=== PATIENT | female | born 1950 | race Caucasian/White ===

== ENCOUNTER → 2019-12-25 07:47 | Outpatient (CLI) | payer OTHER, SELFPAY ==
--- NOTE | ~2019-12-25 | MR_ITS ---
EXAMINATION: MR knee LT wo con DATE: 12/25/2019 08:31 INDICATION: Generalized left knee pain and difficulty walking TECHNIQUE: Magnetic resonance imaging (MRI) of the left knee was performed without intravenous contra st. Sequences included coronal PD-weighted FSE, coronal PD-weighted FS FSE, sagittal T2-weighted FSE , sagittal PD-weighted FS FSE and axial PD weighted fat saturated FSE. COMPARISON: Left knee radiographs dated 04/10/2019 FINDINGS: Medial compartment: Interval development of a large osteochondral lesion underlying nearly the entire articular surface o f the anterior weightbearing medial femoral condyle. There is linear fluid signal intensity along the margins of the lesion including extending across the articular cortices consistent with a loose in s itu fragment. There has been mild collapse of the articular surface with up to 1 mm step-off along th e medial margin of the lesion. There is mild underlying marrow edema. Complex tear along the body and posterior horn of the medial meniscus which includes a radial tear plane at the posterior horn and a dditional small radial tear plane at the body where there is also a small longitudinal vertical tear plane extending to the inferior articular surface and the peripheral third. The posterior horn on eit her side the radial tear appears small suggesting some loss of meniscal tissue although no displaced meniscal flap is appreciated. Deep chondral ulceration but without degenerative subchondral changes a long the posterior weightbearing medial femoral condyle. Additional deep chondral ulceration at the a nterior medial aspect of the medial tibial plateau with minimal underlying subarticular edema. There is some partial thickness fissuring of the cartilage at the central aspect of the osteochondral lesio n. Small marginal osteophytes are present. Lateral compartment: Lateral meniscus is normal. Articular cartilage is normal. Tiny marginal osteophytes are present. Patellofemoral compartment: Deep chondral ulceration with mild underlying subarticular cystic change at the patellar apical ridge and medial patellar facet. Partial-thickness chondral ulceration with chondral surface irregularity and minimal subarticular edema at the medial trochlea and caudal aspect of the trochlear groove. Smal l marginal osteophytes are present. Ligaments and tendons: Anterior and posterior cruciate ligaments are normal. The medial collateral ligament and fibular dia ateral ligament complex are normal. The extensor mechanism is normal. The visualized medial and later al hamstring tendons as well as the iliotibial band are normal. Fluid: Large knee joint effusion with moderate synovitis at the suprapatellar pouch and along the margins of Hoffa's fat pad. No loose osteochondral bodies identified. IMPRESSION: 1. Large loose in situ osteochondral lesion involving nearly the entire articular surface of the ante rior weightbearing medial femoral condyle with minimal collapse of the articular cortex. 2. Complex medial meniscal tear. 3. Tricompartmental osteoarthritis, mild in the medial and mild to moderate in the patellofemoral com partments, both with high-grade chondromalacia and minimal with relatively preserved cartilage in the lateral compartment. 4. Likely reactive large left knee joint effusion and synovitis. Reviewed, dictated and finalized at location A. IMPRESSION: 1. Large loose in situ osteochondral lesion involving nearly the entire articul ar surface of the anterior weightbearing medial femoral condyle with minimal co llapse of the articular cortex. 2. Complex medial meniscal tear. 3. Tricompartmental osteoarthritis, mild in the medial and mild to moderate in the patellofemoral compartments, both with hi
== END ==
PROVIDERS: PCP Internal Medicine; Visit Provider Internal Medicine
DX: M25.562 Pain in left knee (principal); M89.9 Disorder of bone, unspecified; S83.232A Complex tear of medial meniscus, current injury, left knee, initial encounter; M17.12 Unilateral primary osteoarthritis, left knee; M25.462 Effusion, left knee; M65.862 Other synovitis and tenosynovitis, left lower leg
CPT/HCPCS: 73721

== ENCOUNTER 2020-06-03 01:11 | Outpatient (CLI) | payer OTHER, SELFPAY ==
[2020-06-03 18:21] LABS: SARS-CoV-2 RNA PCR Negative
== END 2020-06-03 01:12 | disposition home or self-care (01) ==
LOC: ANHCOVIDDT 01:11
PROVIDERS: PCP Internal Medicine; Visit Provider Internal Medicine Critical Care Medicine
DX: Z20.828 Contact with and (suspected) exposure to other viral communicable diseases (principal)
CPT/HCPCS: 87635; C9803; U0003

== ENCOUNTER 2020-06-05 08:25 | Outpatient (CLI) | payer OTHER, SELFPAY ==
--- NOTE | 2020-07-15 19:13 | WPDSLEEPSTUD ---
Sleep Study Date of Study: 06/05/20 Ordering Provider: Poncho Grider DO Interpreting Physician: Anahy Martin MD Sleep Study Type: Split Polysomnogram Height: 1.55 m Weight: 84.368 kg Body Mass Index: 35.1 Neck Circumference: 41.91 cm [place]: 5 Reason for Sleep Study Obstructive sleep apnea Sleep History Seda Ellis is a 69 year-old female with a history of sleep apnea with a nocturnal polysomnogram on April 14, 2005 with an AHI of 11.7 associated with heavy snoring and oxygen desaturation. She has difficulty getting to sleep and staying asleep. She was diagnosed with sleep apnea years ago and has used CPAP but from the survey is implied that she has not been using it recently. She constantly snores. Occasionally she awakens at night with heartburn, belching or coughing. She does not awaken from sleep feeling short of breath. She frequently has trouble sleep with a cold. She does not wake up gasping for breath at night. She frequently has breathing problems at night observed by others. She does not sweat excessively at night or notices her heart pounding or beating irregularly at night. She rarely falls asleep during the day, never involuntarily and never while driving. She does not fall asleep during physical effort. She does not have loss of muscle tone with strong emotion. she rarely has daytime difficulties due to excessive sleepiness, works as an insurance case manager. she does not feel paralyzed on waking or falling asleep. She occasionally has vivid dreamlike scenes upon awakening or falling asleep. She is not afraid to go to sleep. She denies having nightmares. She rarely remembers her dreams. She frequently has racing thoughts. She rarely has feelings of sadness, depression or anxiety. She does not have muscular tension. She rarely notices parts of her body jerking. She does not kick at night. She does not have crawling and aching feelings in her legs at night. She does not have morning jaw pain. She occasionally wakes up feeling stiff in the morning with sore achy muscles and pain in the neck and spine. She has insomnia. Normal bedtime is 10:00 p.m., taking several hours to fall asleep. When she wakes up in the night, she watches television. She wakes in the morning between 5:30 a.m. and 7:30 a.m. On the weekends, she wakes at 7:00 a.m. She does not take naps. She is drowsy in the morning for an hour, and feels better in the morning compared to other times of day. Habits: She never smoked tobacco. Caffeine 2 cups in the morning. No alcohol or recreational drugs. 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 DM w/o complication type II Dysphagia, unspecified Hepatitis C antibody test positive Obstructive sleep apnea Other and unspecified hyperlipidemia Family History Family History Mother Family history of seizure disorder Social History Social History Smoking status: Never smoker Alcohol intake: current Medications Home Medications Medication Instructions Recorded Confirmed Type aspirin 81 mg tablet,delayed 81 mg PO DAILY 06/05/19 04/14/20 History release tramadol 50 mg tablet 50 mg PO Q6H PRN #90 tablet 08/30/19 04/14/20 Rx glimepiride 2 mg tablet 2 mg PO QAM #90 tablet 03/20/20 04/14/20 Rx linagliptin 5 mg tablet See Rx Instructions .ROUTE 04/01/20 04/14/20 Rx .COMPLEX #90 tablet hydrocodone 5 mg-acetaminophen 325 1 tablet PO Q6H PRN 04/14/20 History mg tablet meloxicam 15 mg tablet 15 mg PO DAILY PRN 04/14/20 History atorvastatin 40 mg tablet See Rx Instructions .ROUTE 05/04/20 Rx .COMPLEX #90 tablet canagliflozin 300 mg tablet See Rx Instructions .ROUTE 05/04/20 Rx .COMPLEX #90 tablet
[2020-07-15 20:50] VITALS: BMI 35.1
== END 2020-06-05 08:26 | disposition home or self-care (01) ==
LOC: ANHCSM 08:26
PROVIDERS: PCP Internal Medicine; Visit Provider Internal Medicine
DX: G47.33 Obstructive sleep apnea (adult) (pediatric) (principal)
CPT/HCPCS: 95811

== ENCOUNTER 2020-12-31 14:48 | Outpatient (CLI) | payer OTHER, SELFPAY ==
--- NOTE | ~2020-12-31 | DEXA_ITS ---
Bone Density Report Name: Seda Ellis Age: 70 Sex: Female Ethnicity: White Date of : 1950 Indication: postmenopausal; Referring Provider: Halie Richards Study: Bone densitometry was performed. Exam Date: December 31, 2020 Accession number: [id number] Bone Density: Region BMD T-score Z-score Classification AP Spine (L1, L4) 1.204 1.5 3.7 Normal Femoral Neck (Left) 0.774 -0.7 1.2 Normal Total Hip (Left) 1.017 0.6 2.2 Normal Total Hip Bilateral Avg 0.993 0.4 2.0 Normal Femoral Neck (Right) 0.716 -1.2 0.7 Osteopenia Total Hip (Right) 0.967 0.2 1.8 Normal World Health Organization criteria for BMD impression classify patients as: Normal (T-score at or above -1.0), Osteopenia (T-score between -1.0 and -2.5), or Osteoporosis (T-score at or below -2.5). 10-year Fracture Risk(1): Major Osteoporotic Fracture 9.1% Hip Fracture 1.2% Reported Risk Factors: [place] (), Neck BMD=0.716, BMI=34.0 (1) FRAX(R) Version 3.08. Fracture probability calculated for an untreated patient. Fracture probability may be lower if the patient has received treatment. Clinical Information Provided by Patient: Has used the following medications: Vitamin D, Calcium Patient maximum height was 61 Menopause Age: 50 No regular weight bearing exercise Drinks caffeinated beverages Onset of menses at age 14 Number of children 2 Impression: The patient has low bone mass, based on the Right Femoral Neck T-score. The patient has an estimated ten-year risk of hip fracture of 1.2% and an estimated ten-year risk of major fracture of 9.1%, based on the WHO FRAX algorithm. Discussion: BONE DENSITY IS LOW AT ONE OR MORE SKELETAL SITES. This patient's lowest T-score is low at one or more skeletal sites. It meets the World Health Organization's (WHO) criteria for ?low bone mass? (T-score between -1.0 and -2.5). The patient's 10-year risk of fracture as calculated by FRAX is less than the threshold where pharmacological therapy is recommended by the National Osteoporosis Foundation (NOF). However, all treatment decisions require clinical judgment and consideration of individual patient factors, including patient preferences, comorbidities, previous drug use, risk factors not captured in the FRAX model (e.g., frailty, falls, vitamin D deficiency, increased bone turnover, interval significant decline in bone density) and possible under or overestimation of fracture risk by FRAX. The patient should follow a healthful lifestyle (good nutrition with adequate calcium and vitamin D, and appropriate weight-bearing exercise). Follow-Up: Consider repeating this study in 2 to 3 years to reassess this patient's status, or sooner if there is some new clinical indication. Reported by: CLARISSA on 12/31/2020 3:10:00 PM.
--- NOTE | ~2020-12-31 | MM_ITS ---
EXAMINATION: MM screening armando BI w kari HISTORY: Screening TECHNIQUE: Craniocaudal and mediolateral oblique 3-D tomosynthesis images were obtained and synthetic 2-D images were generated. CAD analysis was submitted and interpreted. COMPARISON: No prior mammogram is available for comparison at this institution. BREAST PARENCHYMAL COMPOSITION: There are scattered areas of fibroglandular density. FINDINGS: There are bilateral periareolar asymmetries, best seen on CC views. There are no suspicious calcifications. No architectural distortion. IMPRESSION: 1. Bilateral periareolar asymmetries. 2. Recommend comparison to previous outside mammograms. BI-RADS Category 0: Incomplete: Needs additional imaging evaluation. Reviewed, dictated and finalized at location A.
== END 2020-12-31 14:49 | disposition home or self-care (01) ==
PROVIDERS: PCP Internal Medicine; Visit Provider Internal Medicine
DX: Z12.31 Encounter for screening mammogram for malignant neoplasm of breast (principal); Z78.0 Asymptomatic menopausal state; R92.8 Other abnormal and inconclusive findings on diagnostic imaging of breast; M85.851 Other specified disorders of bone density and structure, right thigh
CPT/HCPCS: 77063; 77067; 77080

== ENCOUNTER 2021-03-22 13:34 | Outpatient (RCR) | payer OTHER, SELFPAY ==
[2021-03-22] MEDS: ACETAMINOPHEN 325 MG TABLET 650 MG PO (14:03)
[2021-03-22] MEDS: diphenhydrAMINE HCl CAP 25 MG CAPSULE PO (14:03)
[2021-03-22] MEDS: FAMOTIDINE 20 MG TABLET PO (14:04)
[2021-03-22 14:07] VITALS: BP 131/66; PULSE 65; RESP 20; TEMP 37.2; O2SAT 97
[2021-03-22 15:30] VITALS: BP 110/58
== END 2021-03-22 16:30 | disposition home or self-care (01) ==
LOC: AMCINF 13:34
PROVIDERS: PCP Internal Medicine; Referring Provider Internal Medicine; Visit Provider Internal Medicine Hematology & Oncology
DX: Z23 Encounter for immunization (principal); U07.1 COVID-19; E11.9 Type 2 diabetes mellitus without complications
CPT/HCPCS: A9270; J7050; M0243

== ENCOUNTER 2021-04-28 09:15 | Outpatient (RCR) | payer OTHER, SELFPAY | END 2021-06-21 09:36 | disposition home or self-care (01) | LOC: ANHDMC 09:15 | PROVIDERS: PCP Internal Medicine; Visit Provider Internal Medicine | DX: E11.65 Type 2 diabetes mellitus with hyperglycemia (principal); Z71.89 Other specified counseling | CPT/HCPCS: G0108 ==

== ENCOUNTER 2021-07-20 09:13 | Outpatient (RCR) | payer OTHER, SELFPAY | END 2021-09-29 16:15 | disposition home or self-care (01) | LOC: ANHDMC 09:13 | PROVIDERS: PCP Internal Medicine; Visit Provider Internal Medicine | DX: E11.65 Type 2 diabetes mellitus with hyperglycemia (principal); Z71.89 Other specified counseling | CPT/HCPCS: G0108 ==

== ENCOUNTER 2021-07-27 09:38 | Outpatient (CLI) | payer OTHER, SELFPAY ==
[2021-07-27 17:35] LABS: Creatinine Urine 64.1 mg/dL
[2021-07-27 17:39] LABS: MALB Creatinine Ratio 10.1 mg/g (0-30); Microalbumin Urine Random 6.5 mg/L (0-16.7)
== END 2021-07-27 09:39 | disposition home or self-care (01) ==
PROVIDERS: PCP Internal Medicine; Visit Provider Internal Medicine Endocrinology, Diabetes & Metabolism
DX: E11.65 Type 2 diabetes mellitus with hyperglycemia (principal)
CPT/HCPCS: 82043

== ENCOUNTER 2021-09-07 09:14 | Outpatient (CLI) | payer OTHER, SELFPAY ==
--- NOTE | ~2021-09-07 | US_ITS ---
EXAMINATION: US soft tissue head and neck EXAM DATE: 09/07/2021 09:37 INDICATION: R22.1 - Localized swelling, mass and lump, neck . Left-sided facial pain when eating. TECHNIQUE: Multiple grayscale and Doppler images of the left parotid region were obtained (by a techn ologist who performed the scan) and subsequently reviewed. There is no prior study for comparison. FINDINGS: Scanning in the area of reported lump demonstrates normal appearing left parotid parenchyma, no evide nce of parotid mass in the visualized superficial parotid lobe, or regional lymphadenopathy. No evide nce of sialolithiasis or intraparotid duct dilation. Deep lobe of parotid not visualized by this moda lity. IMPRESSION: Unremarkable left parotid superficial lobe. Reviewed, dictated and finalized at location A. [employer]
== END 2021-09-07 09:15 | disposition home or self-care (01) ==
LOC: ANHIMG 09:19
PROVIDERS: PCP Internal Medicine; Visit Provider Nurse Practitioner
DX: R22.1 Localized swelling, mass and lump, neck (principal)
CPT/HCPCS: 76536

== ENCOUNTER 2022-01-12 08:35 | Outpatient (CLI) | payer OTHER, SELFPAY ==
--- NOTE | 2022-02-05 13:26 | WPDSLEEPSTUD ---
Sleep Study Date of Study: 01/12/22 Ordering Provider: Wayne Pacheco APRN Interpreting Physician: Anahy Martin MD Sleep Study Type: Split Polysomnogram Height: 1.56 m Weight: 77.111 kg Body Mass Index: 31.6 Neck Circumference (inches): 15.5 [place]: 3 Reason for Sleep Study Prior history of obstructive sleep apnea, did not get started with CPAP as the equipment was not delivered * 06/05/2021 splpit night -mild obstructive sleep apnea with an AHI of 14.1 with [id number] snoring and desaturation to 85%, CPAP 15 cm using a small Airfit F30 full face mask and a heated humidifier.? Sleep History Seda Ellis is a 71 year old female with a history of obstructive sleep apnea. She had difficulties tolerating the mask. SHe was tested in Jul 2020 but during COV never was set up with equipment. She is now being re-tested. She does not awaken at night feeling short of breath or awaken at night with heartburn, belching or coughing. She always snores loudly enough that others complain about it. She occasionally has trouble sleeping with a cold. She does not wake up gasping for breath at night. She rarely has breathing problems at night observed by others. She does not sweat excessively at night or notice her heart pounding or beating irregularly night. She does not fall asleep during the day, does not fall asleep involuntarily or while driving. She does not have loss of muscle tone with strong emotion. She does not have daytime difficulties due to excessive sleepiness. She does not feel paralyzed on waking or falling asleep. She occasionally has vivid dreamlike scenes upon awakening or falling asleep. She never feels afraid to go to sleep. She does not have nightmares. She occasionally remembers her dreams. She rarely has racing thoughts. She does not feel sad or depressed. She rarely has anxiety. She does not have muscular tension. She occasionally notices parts of her body jerking. She does not kick at night. She rarely has crawling and aching feelings in her legs. She occasionally has leg pain during the night. She does not have morning jaw pain. She frequently grinds her teeth during sleep. She occasionally is bothered by pain during the day. She rarely is awakened by pain during the night. She rarely wakes up feeling stiff in the morning or wakes up with sore or achy muscles. She constantly wakes up with joint pain due to a knee replacement surgery 2 years ago. Normal bedtime is 10:00 p.m. waking up twice during the night only long enough to go to the bathroom. She wakes the morning by 7:00 a.m.. The weekend schedule is the same. She estimates getting 6 hours of sleep overnight. She occasionally takes naps. A short nap may be refreshing. She feels better in the morning compared to other times of day she often awakens feeling refreshed. Habits: Never smoked tobacco. Caffeine 2 cups of coffee a day. 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
[2022-02-05 16:32] VITALS: BMI 31.6
--- NOTE | 2022-05-25 10:25 | SLEEP ---
PT WAITING TILL 07/03 TO PROCESS HER MACHINE ORDER D/T INS. CHANGE HIGH DED AMOUNT
--- NOTE | 2023-02-06 15:01 | SLEEP ---
pt does not have machine. pt advised to call pulmonary and sleep medicine
--- NOTE | 2023-07-06 12:59 | SLEEP ---
d/t high deductible no machine
== END 2022-01-13 06:21 | disposition home or self-care (01) ==
LOC: ANHCSM 08:36
PROVIDERS: PCP Internal Medicine; Visit Provider Nurse Practitioner Family
DX: G47.33 Obstructive sleep apnea (adult) (pediatric) (principal)
CPT/HCPCS: 95811

== ENCOUNTER 2022-01-25 00:04 | Day surgery (SDC) | payer OTHER, SELFPAY ==
[2022-01-13 09:49] VITALS: BMI 32.1
[2022-01-25 07:47] VITALS: BP 137/74; PULSE 77; RESP 20; TEMP 36.4; O2SAT 97
--- NOTE | 2022-01-25 08:05 | WPDANESEPPF ---
Anes - Initial Pre Proc Eval Procedure: Operation Date: 01/25/22 09:00 Proposed Procedures p Screening Colonoscopy - Blanco Queen MD Date/Time: 01/25/22 08:05 Surgeon: Blanco Queen MD Pre Op Diagnosis: neoplasm screening Patient Data Age: 71 Gender: F Height: 1.55 m Weight: 74.9 kg Last Vital Signs Temp 36.4 C 01/25/22 07:47 Pulse 77 01/25/22 07:47 Resp 20 01/25/22 07:47 BP 137/74 01/25/22 07:47 Pulse Ox 97 01/25/22 07:47 O2 Del Method Room Air 01/25/22 07:47 Allergies Allergy/AdvReac Type Severity Reaction Status Date / Time No Known Allergies Allergy Verified 01/25/22 07:46 Home Medications Medication Instructions Recorded Confirmed Type aspirin 81 mg tablet,delayed 81 mg PO EVERY OTHER DAY 06/05/19 01/13/22 History release (Aspir-) cholecalciferol (vitamin D3) 125 125 mcg PO DAILY 11/23/20 01/13/22 History mcg (5,000 unit) capsule blood sugar diagnostic (OneTouch #100 ea 03/11/21 10/21/21 Rx Verio test strips) lancets 30 gauge #200 ea 04/28/21 10/21/21 Rx calcium carbonate 500 mg calcium 500 mg PO DAILY #90 tabs 07/28/21 01/13/22 Rx (1,250 mg) tablet empagliflozin 25 mg tablet 25 mg PO DAILY #90 tabs 08/20/21 01/13/22 Rx (Jardiance) atorvastatin 80 mg tablet 80 mg PO DAILY #90 tabs 10/27/21 01/13/22 Rx semaglutide 1 mg/dose (4 mg/3 mL) 1 mg (0.75 mL) subcut WEEKLY 90 12/08/21 01/13/22 Rx subcutaneous pen injector (Ozempic) days #9 mL flash glucose sensor (FreeStyle #2 ea 01/11/22 Rx Ty 2 Sensor kit) icosapent ethyl 1 gram capsule 2 g PO BID 01/13/22 01/13/22 History (Vascepa) lisinopril 20 1 tablet PO DAILY 01/13/22 01/13/22 History mg-hydrochlorothiazide 12.5 mg tablet metformin 1,000 mg tablet 1,000 mg PO BID 01/13/22 01/13/22 History omeprazole 40 mg capsule,delayed 40 mg PO DAILY 01/13/22 01/13/22 History release tumeric 100 mg-dylon 150 mg-olive 1 cap PO DAILY 01/13/22 01/13/22 History 50 mg-oreg 150 mg-caprylate capsule levothyroxine 125 mcg tablet 125 mcg PO DAILY #90 tabs 01/20/22 01/25/22 Rx Patient hx anesthesia problems: none Family hx anesthesia problems: none Results Review: All pre-operative results and documents have been reviewed as part of the pre-operative evaluation. 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 DM w/o complication type II Dysphagia, unspecified GERD (gastroesophageal reflux disease) Hepatitis C antibody test positive Obstructive sleep apnea Other and unspecified hyperlipidemia Surgical History Surgical History (Updated 01/25/22 @ 08:06 by Zev Wells MD) History of total knee arthroplasty Family History Family History Mother Family history of seizure disorder Other Cancer Heart disease Hypertension Seizure Social History Social History Smoking status: Former smoker Second hand tobacco smoke exposure: No Alcohol intake: never Alcohol use details: rarely Substance use: never Substance use type: does not use Living arrangements: with family Spiritual care concerns: No Anes - Eval Final PreProcedure Day of Procedure 01/25/22 08:05 Patient weight: obese Heart: regular rate and rhythm Lungs: clear to auscultation Airway: Mallampati scale class II Neurological: alert and oriented Last oral intake: >/= 8 hours ASA classification: III Emergent: no Anesthesia type and monitoring: general GIVS and standard monitoring Results Review: All pre-operative results and documents have been reviewed as part of the pre-operative evaluation. Informed Consent: The patient's anesthetic plan and its attendant risks and benefits were discussed with juan
[2022-01-25] MEDS: LACTATED RINGERS 1,000 ML 150 ML IV CONT (08:09)
[2022-01-25 08:12] LABS: Glucose Point of Care 134 mg/dl (65-105)
--- NOTE | 2022-01-25 08:37 | PM.HPGS ---
History of Present Illness History of Present Illness Consent: Risks, benefits, and alternatives have been discussed and questions answered. Patient agrees to proceed with procedure. Chief complaint: neoplasm screening Narrative: Seda Ellis is a 71 year old female with last colonoscopy over 15 years ago Review of Systems Constitutional: Constitutional: Denies headache(s) and Denies weakness Eyes: Eyes: Denies blurry vision ENT: Reports Normal hearing present, Denies headache(s) and Denies neck pain Cardiovascular: Cardiovascular: Denies chest pain and Denies dyspnea Respiratory: Respiratory: Denies dyspnea Gastrointestinal: Gastrointestinal: Reports no additional gastrointestinal complaints Genitourinary: Genitourinary: Denies dysuria Musculoskeletal: Musculoskeletal: Denies neck pain Integumentary/Breasts: Skin/Breast: Denies dry skin Neurologic: Reports Normal hearing present, Denies headache(s) and Denies weakness Psychiatric: Psychiatric: Denies anxiety Endocrine: Endocrine: Denies change in body appearance Hematologic/Lymphatic: Hematologic/Lymphatic: Denies easy bleeding Allergic/Immunologic: Allergic/Immunologic: Denies urticaria PMFSH Past Medical History Medical History Adult hypothyroidism Benign essential hypertension 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 DM w/o complication type II Dysphagia, unspecified GERD (gastroesophageal reflux disease) Hepatitis C antibody test positive Obstructive sleep apnea Other and unspecified hyperlipidemia Surgical History Surgical History (Updated 01/25/22 @ 08:06 by Zev Wells MD) History of total knee arthroplasty Family History Family History Mother Family history of seizure disorder Other Cancer Heart disease Hypertension Seizure Social History Social History Smoking status: Former smoker Second hand tobacco smoke exposure: No Alcohol intake: never Alcohol use details: rarely Substance use: never Substance use type: does not use Living arrangements: with family Spiritual care concerns: No Meds Home Medications and Allergies Home Medications Medication Instructions Recorded Confirmed Type aspirin 81 mg tablet,delayed 81 mg PO EVERY OTHER DAY 06/05/19 01/13/22 History release (Aspir-) cholecalciferol (vitamin D3) 125 125 mcg PO DAILY 11/23/20 01/13/22 History mcg (5,000 unit) capsule blood sugar diagnostic (Oneuch #100 ea 03/11/21 10/21/21 Rx Verio test strips) lancets 30 gauge #200 ea 04/28/21 10/21/21 Rx calcium carbonate 500 mg calcium 500 mg PO DAILY #90 tabs 07/28/21 01/13/22 Rx (1,250 mg) tablet empagliflozin 25 mg tablet 25 mg PO DAILY #90 tabs 08/20/21 01/13/22 Rx (Jardiance) atorvastatin 80 mg tablet 80 mg PO DAILY #90 tabs 10/27/21 01/13/22 Rx semaglutide 1 mg/dose (4 mg/3 mL) 1 mg (0.75 mL) subcut WEEKLY 90 12/08/21 01/13/22 Rx subcutaneous pen injector (Ozempic) days #9 mL flash glucose sensor (FreeStyle #2 ea 01/11/22 Rx Ty 2 Sensor kit) icosapent ethyl 1 gram capsule 2 g PO BID 01/13/22 01/13/22 History (Vascepa) lisinopril 20 1 tablet PO DAILY 01/13/22 01/13/22 History mg-hydrochlorothiazide 12.5 mg tablet metformin 1,000 mg tablet 1,000 mg PO BID 01/13/22 01/13/22 History omeprazole 40 mg capsule,delayed 40 mg PO DAILY 01/13/22 01/13/22 History release tumeric 100 mg-dylon 150 mg-olive 1 cap PO DAILY 01/13/22 01/13/22 History 50 mg-oreg 150 mg-caprylate capsule levothyroxine 125 mcg tablet 125 mcg PO DAILY #90 tabs 01/20/22 01/25/22 Rx Allergies Allergy/AdvReac Type Severity Reaction Status Date / Time No Known Allergies Allergy Verified 01/25/22 07:46 Vital Signs Vital Signs - 24 hr 01/25/22 07:47 Temperature 97.6 F Pulse Rate 77 R
[2022-01-25 08:54] VITALS: BP 106/64; PULSE 72; RESP 14; O2SAT 96
[2022-01-25 09:04] VITALS: BP 119/68; PULSE 70; RESP 24; O2SAT 98
[2022-01-25 09:14] VITALS: BP 141/84; PULSE 66; RESP 22; O2SAT 97
== END 2022-01-25 09:20 | disposition home or self-care (01) ==
PROVIDERS: PCP Internal Medicine; Visit Provider Internal Medicine Gastroenterology
PROC: 0DJD8ZZ Inspection of Lower Intestinal Tract, Via Natural or Artificial Opening Endoscopic (ICD-10-PCS; CPT 45378; principal; 2022-01-25 09:00)
DX: Z12.11 Encounter for screening for malignant neoplasm of colon (principal); D12.4 Benign neoplasm of descending colon; K64.8 Other hemorrhoids; K57.30 Diverticulosis of large intestine without perforation or abscess without bleeding; I10 Essential (primary) hypertension; E11.9 Type 2 diabetes mellitus without complications; K21.9 Gastro-esophageal reflux disease without esophagitis; G47.33 Obstructive sleep apnea (adult) (pediatric); E03.9 Hypothyroidism, unspecified; Z87.891 Personal history of nicotine dependence; Z79.82 Long term (current) use of aspirin; Z79.3 Long term (current) use of hormonal contraceptives; E66.9 Obesity, unspecified; Z68.31 Body mass index [BMI] 31.0-31.9, adult
CPT/HCPCS: 45380; 82948; 88305; J2704; J7120

== ENCOUNTER 2022-07-08 15:50 | Outpatient (CLI) | payer OTHER, SELFPAY ==
--- NOTE | ~2022-07-08 | MM_ITS ---
EXAMINATION: MM screening armando BI w kari HISTORY: Screening mammogram TECHNIQUE: Craniocaudal and mediolateral oblique 3-D tomosynthesis images were obtained and synthetic 2-D images were generated. CAD analysis was submitted and interpreted. COMPARISON: 12/31/2020, , 09/05/2013 bilateral screening mammogram examinations BREAST PARENCHYMAL COMPOSITION: There are scattered areas of fibroglandular density. FINDINGS: Scattered benign bilateral calcifications. There is no evidence of suspicious mass, calcifi cation, or architectural distortion to suggest malignancy in either breast. There has been no suspici ous interval change. IMPRESSION: 1. No mammographic evidence of malignancy. 2. Recommend routine screening mammography in one year. BI-RADS Category 2: Benign finding(s). Reviewed, dictated and finalized at location B. [facility]
== END 2022-07-08 15:51 | disposition home or self-care (01) ==
PROVIDERS: PCP Internal Medicine; Visit Provider Internal Medicine
DX: Z12.31 Encounter for screening mammogram for malignant neoplasm of breast (principal)
CPT/HCPCS: 77063; 77067

== ENCOUNTER 2023-05-26 09:33 | Outpatient (CLI) | payer OTHER, SELFPAY ==
--- NOTE | ~2023-05-26 | XR_ITS ---
EXAMINATION:XR_[id number]_CR DATE: 05/26/2023 09:52 INDICATION: Paresthesias of the skin TECHNIQUE: AP, lateral, lateral swimmers and odontoid views of the cervical spine are provided. COMPARISON: None FINDINGS: There are 2 mm of retrolisthesis of C4 on C5. The odontoid process is intact. No fracture i s identified. There is mild loss of intervertebral disc space height at C5-6 and C6-7. The vertebral body heights are maintained. There is multilevel severe facet and uncovertebral joint osteoarthritis. Prevertebral soft tissues are normal. IMPRESSION: 1. Moderate to severe cervical spondylosis without acute findings. Reviewed, dictated and finalized at location F. ZING MACHINE OFFBEARER
== END 2023-05-26 09:34 | disposition home or self-care (01) ==
PROVIDERS: PCP Nurse Practitioner; Visit Provider Nurse Practitioner
DX: R20.2 Paresthesia of skin (principal); M47.892 Other spondylosis, cervical region
CPT/HCPCS: 72040

== ENCOUNTER 2023-07-04 10:29 | Outpatient (CLI) | payer OTHER, SELFPAY ==
--- NOTE | 2023-07-04 11:00 | NEURO_ITS ---
Impression: # shelter diabetic complains of pain in left hand. # Left moderately severe Carpal Tunnel Syndrome. # Left ulnar neuropathy around the elbow. # Abnormal needle/EMG exam. Nerve Conduction Studies Anti Sensory Summary Table Stim Site NR Peak (ms) P-T Amp (?V) Site1 Site2 Delta-P (ms) Dist (cm) Rafael (m/s) Left Median Anti Sensory (2-3nd Digit) Wrist 4.5 9.2 Wrist 2-3nd Digit 4.5 14.0 31 Wrist 6.9 17.1 Wrist 2-3nd Digit 4.5 14.0 31 Left Radial Anti Sensory (Base 1st Digit) Wrist 2.1 23.9 Wrist Base 1st Digit 2.1 0.0 Left Ulnar Anti Sensory (5th Digit) Wrist 2.8 16.0 Wrist 5th Digit 2.8 14.0 50 Motor Summary Table Stim Site NR Onset (ms) O-P Amp (mV) Site1 Site2 Delta-0 (ms) Dist (cm) Rafael (m/s) Left Median Motor (Abd Poll Brev) Wrist 6.3 4.2 Elbow Wrist 5.5 28.0 51 Elbow 11.8 3.9 Left Ulnar Motor (Abd Dig Minimi) Wrist 2.7 10.0 A Elbow Wrist 5.2 27.0 52 A Elbow 7.9 9.3 B Elbow Wrist 3.2 18.0 56 B Elbow 5.9 9.2 F Wave Studies NR F-Lat (ms) L-R F-Lat (ms) Left Median (Mrkrs) (Abd Poll Brev) 29.92 Left Ulnar (Mrkrs) (Abd Dig Min) 28.59 EMG Side Muscle Nerve Root Ins Act Fibs Amp Dur Recrt Comment Left 1stDorInt Ulnar C8-T1 Nml Nml Nml >12ms Reduced Left Ext Indicis Radial (Post Int) C7-8 Nml Nml Nml Nml Nml Left Ext Digitorum Radial (Post Int) C7-8 Nml Nml Nml Nml Nml Left BrachioRad Radial C5-6 Nml Nml Nml Nml Nml Left PronatorTeres Median C6-7 Nml Nml Nml Nml Nml Left Abd Poll Brev Median C8-T1 Nml Nml Nml >12ms Reduced Left ABD Dig Min Ulnar C8-T1 Nml Nml Nml >12ms Reduced MTDD
== END 2023-07-04 10:30 | disposition home or self-care (01) ==
LOC: ANHNEURO 10:33
PROVIDERS: PCP Nurse Practitioner; Visit Provider Nurse Practitioner
DX: R20.2 Paresthesia of skin (principal); G56.02 Carpal tunnel syndrome, left upper limb; G56.22 Lesion of ulnar nerve, left upper limb
CPT/HCPCS: 95886; 95909

== ENCOUNTER 2023-07-10 13:59 | Outpatient (CLI) | payer OTHER, SELFPAY ==
--- NOTE | ~2023-07-10 | MM_ITS ---
EXAMINATION: MM screening armando BI w kari HISTORY: Screening mammogram TECHNIQUE: Craniocaudal and mediolateral oblique 3-D tomosynthesis images were obtained and synthetic 2-D images were generated. CAD analysis was submitted and interpreted. COMPARISON: 07/08/2022, 12/31/2020, 08/20/2016 BREAST PARENCHYMAL COMPOSITION: There are scattered areas of fibroglandular density. FINDINGS: Scattered benign-appearing calcifications are present. No suspicious mass, calcification, o r architectural distortion are identified in either breast to suggest malignancy. There has been no s uspicious interval change. IMPRESSION: 1. No mammographic evidence of malignancy. 2. Recommend routine screening mammography in one year. BI-RADS Category 2: Benign finding(s). Reviewed, dictated and finalized at location A. TECHNICIAN
== END 2023-07-10 14:00 | disposition home or self-care (01) ==
LOC: ANHIMG 14:03
PROVIDERS: PCP Nurse Practitioner; Visit Provider Nurse Practitioner
DX: Z12.31 Encounter for screening mammogram for malignant neoplasm of breast (principal)
CPT/HCPCS: 77063; 77067

== ENCOUNTER 2023-08-25 07:51 | Outpatient (CLI) | payer OTHER, SELFPAY ==
[2023-08-25 08:41] LABS: Anion Gap 7 mmol/L (8-16); Blood Urea Nitrogen 23 mg/dL (7-17); Calcium 9.8 mg/dL (8.4-10.2); Carbon Dioxide 30 mmol/L (22-30); Chloride 99 mmol/L (98-107); Estimated Glomerular Filt Rate > 60; Glucose 142 mg/dL (65-110); Potassium 4.4 mmol/L (3.4-5.0); Sodium 136 mmol/L (137-145)
== END 2023-08-25 07:52 | disposition home or self-care (01) ==
LOC: ANHSURGERY 07:54
PROVIDERS: Anesthesiology; PCP Nurse Practitioner; Visit Provider Plastic Surgery
DX: Z01.818 Encounter for other preprocedural examination (principal); E11.65 Type 2 diabetes mellitus with hyperglycemia
CPT/HCPCS: 36415; 80048

== ENCOUNTER 2023-08-30 00:32 | Day surgery (SDC) | payer OTHER, SELFPAY ==
--- NOTE | 2023-08-21 15:14 | PC.NURSE ---
Report to the Outpatient Waiting Room, entrance under the green pavilion located off [facility], at time _0715 on date __08/30/23 . Planned Procedure Time: ___914 . Time changes happen often and if your time is changed the preop area will call you the afternoon before. - You and your visitor will be asked to self-screen and do not enter if you have any COVID symptoms. - A mask is optional within the hospital at this time. NOTHING TO EAT OR DRINK 8 HOURS PRIOR TO SURGERY PER DR MORRIS Take the following medications with a SIP of water the morning of surgery: __DULOXETINE,GABAPENTIN,LEVOTHYROXINE, DO NOT STOP ANY OF YOUR OTHER PRESCRIPTION MEDICATIONS PRIOR TO SURGERY ?EXCEPT THE FOLLOWING Medications to discontinue per physician ___HOLD ALL VITAMINS AND SUPPLEMENTS 3 DAYS PRE OP_LAST DOSE 08/26/23 Please no make-up, nail [place] citizen, hairspray, perfume, deodorant, or body powder the day of surgery. No jewelry (including any body piercings) or valuables the day of surgery, leave them at home. Please take a shower or bath the night before, or the morning of, surgery with an antibacterial soap. Wear comfortable, loose fitting clothing. Children are encouraged to wear pajamas. - Jewelry must be removed prior to entering the operating room. Rings and piercings that are not removed may be cut off. - The hospital will not accept responsibility for valuables. - Please leave all valuables, including medications, at home the day of surgery. If you are going home after surgery, a licensed personal driver must drive you home. - NO public transportation without another adult if you receive anesthesia. - We recommend that an adult stay with you for 24 hours following discharge. - We also recommend that you do not drive, make important decision, drink alcoholic beverages, or take any drugs that were not prescribed by your health care provider for at least 24 hours after your discharge time. Follow any additional instructions given to you from your surgeon. If you or anyone in your household have experienced Covid symptoms in the past week, please notify your surgeon or the nurse liaison at the phone number below for possible testing. Telephone instructions given to ____PATIENT and asked if any additional questions and then verbalized understanding. Patient advised to call surgeon office or pre surgery nurse liaison [phone] if any additional questions.
[2023-08-21 15:26] VITALS: BMI 27.8
--- NOTE | 2023-08-30 07:11 | PM.HPGS ---
History of Present Illness History of Present Illness Chief complaint: left wrist carpal tunnel syndrome,ulnar nerve synd Narrative: Patient seen and examined in pre-operative holding area. No interval change in medical history or symptoms. Patient recalls previous discussion of benefits and alternatives to procedure. Continues to desire to proceed with left endoscopic possible open carpal tunnel release and left cubital tunnel release. Reviewed procedure, post-op expectations and risks including but not limited to bleeding, infection, injury to tendon/nerve/vessel, decreased hand function, stiffness, RSD, no change or worsening of symptoms. I discussed the possible use of assistants and their participation in the case. Patient stated understanding and signed the consent form wishing to proceed. 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 DM w/o complication type II Dysphagia, unspecified GERD (gastroesophageal reflux disease) Hepatitis C antibody test positive Hyperlipidemia LDL goal <100 Low vitamin D level Lump on neck Neuropathy Obesity (BMI 30.0-34.9) Obstructive sleep apnea Osteopenia Other and unspecified hyperlipidemia Type 2 diabetes mellitus with hyperglycemia Surgical History Surgical History H/O colonoscopy History of total knee arthroplasty Family History Family History Mother Family history of seizure disorder Other Cancer Heart disease Hypertension Seizure Social History Social History Smoking status: Never smoker Second hand tobacco smoke exposure: No Alcohol intake: never Alcohol use details: rarely Substance use: never Substance use type: does not use Do You Feel Safe in your Home?: Yes Lack of Transportation: No Lack of Food: Never True Current Housing: I Have Housing Concerned About Future Housing: No Difficulty Paying Gas/Electric Bills: No Difficulty Paying for Meds: No Currently Unemployed: No Education: Trade/Vocational Certificate Difficulty w/ Childcare or Family Care: No Living arrangements: with family Spiritual care concerns: No Meds Home Medications and Allergies Home Medications Medication Instructions Recorded Confirmed Type cholecalciferol (vitamin D3) 125 125 mcg PO DAILY 11/23/20 08/30/23 History mcg (5,000 unit) capsule lancets 30 gauge #200 ea 04/28/21 05/23/23 Rx turmeric 100 mg-dylon 150 1 cap PO DAILY 01/13/22 08/30/23 History mg-olive 50 mg-oreg 150 mg-capryl capsule icosapent ethyl 1 gram capsule 2 g PO BID #360 caps 10/10/22 08/30/23 Rx (Vascepa) meclizine 25 mg tablet 25 mg PO TID PRN dizziness #30 tabs 10/11/22 08/21/23 Rx atorvastatin 80 mg tablet 80 mg PO DAILY #90 tabs 10/13/22 08/30/23 Rx omeprazole 40 mg capsule,delayed 40 mg PO DAILY #90 caps 10/13/22 08/30/23 Rx release metformin 1,000 mg tablet 1,000 mg PO BID #90 tabs 11/23/22 08/30/23 Rx duloxetine 60 mg capsule,delayed See Rx Instructions .Route 03/07/23 08/30/23 Rx release .COMPLEX #90 caps semaglutide 2 mg/dose (8 mg/3 mL) 2 mg (0.75 mL) subcut WEEKLY 90 05/16/23 08/30/23 Rx subcutaneous pen injector days #9 mL flash glucose sensor (FreeStyle #6 ea 05/19/23 05/23/23 Rx Ty 2 Sensor kit) levothyroxine 125 mcg tablet 125 mcg PO DAILY #90 tabs 07/17/23 08/30/23 Rx dapagliflozin propanediol 10 mg See Rx Instructions .Route 07/24/23 08/30/23 Rx tablet (Farxiga) .COMPLEX #90 tabs naproxen sodium 220 mg capsule 220 mg PO Q12H PRN Pain 08/21/23 08/21/23 History (Aleve) zinc 50 mg tablet 50 mg PO DAILY
--- NOTE | 2023-08-30 07:11 | W.PM.PROC2 ---
Procedure Note - Detailed Date of Procedure 08/30/23 Pre-op Diagnosis left carpal and cubital tunnel syndrome Post-op Diagnosis Same Procedure Performed left ectr and CUTR Surgeon Rick Woods MD Charging Operator Flaquita Lopez PA-C Anesthesia MAC Description of Procedure INFORMED CONSENT: The patient was seen and examined and marked in the pre-op area.? The patient signed the consent form. PROCEDURE IN DETAIL:The patient taken back to OR on the stretcher in supine position. Time out performed with anesthesia, surgeon and staff agreeing on patient's name site and surgery to be performed SCDs were placed on the lower extremities and inflated. A tourniquet was placed on {left} upper extremity and antibiotics given IV After anesthesia administered sedation I injected {10}cc 1%lido with epi and 0.5% marcaine plain at the operative sites The?{left upper extremity}?was prepped and draped in sterile fashion the??{left upper extremity} was? exsanguinated with Esmarch bandage and tourniquet inflated to 250mmHg I made a transverse incision in the {left} volar distal wrist crease through skin and dermis with 15 blade scalpel.? Littler scissors spread down to antebrachial fascia. A small incision was made in antebrachial fascia allowing access to Carpal tunnel. I proceeded with sequential dilation staying in line with the ring finger and hugging the hook of the hamate.? I then used the synovial elevator to free any adhesions from the underside of the transverse carpal ligament. Next I was able to insert the Microaire endoscopic carpal tunnel device with direct visualization of the transverse fibers on the monitor and proceeded with complete segmental retrograde release of the ligament in its entirety.? I irrigated with normal saline and closed with 4-0 monocryl for dermis and subcuticular closure. I next proceeded with making a longitudinal incision between two heads for flexor carpi ulnaris at end of left cubital tunnel with 15 blade scalpel.? Littler scissors were used to spread down to FCU fascia.? An incision was made in FCU fascia and ulnar nerve identified exiting cubital tunnel.? I proceeded with complete retrograde release of the cubital tunnel including 7cm proximal for the intermuscular septum.? The nerve appeared healthy with visible vaso nervorum.? There was no subluxation on full elbow range of motion. ? I irrigated with normal saline and closure with 4-0 monocryl for dermis and subcuticular. A dressing of Dermabond, 4x4, adwoa, and a volar splint was applied for patient safety, security, and comfort and secured with an neri bandage after the tourniquet was let down noting the hand was warm and well perfused. The patient was then awaken from anesthesia and transferred to the recovery room in stable condition.? Complications - none EBL- 0cc Disposition - home in stable conditions Flaquita Lopez PA-C was essential for positioning, retraction, closure and dressing placement [facility] Billing Surgery - Charge Forward: Surgery Billing ([id number] for flaquita)
--- NOTE | 2023-08-30 07:53 | WPDANESEPPF ---
Anes - Initial Pre Proc Eval Procedure: Operation Date: 08/30/23 09:15 Proposed Procedures p Left Endoscopic Carpal Tunnel Release, Possible Open, Left Cubital Tunnel Release - Rick Woods MD Date/Time: 08/30/23 07:53 Surgeon: Rick Woods MD Pre Op Diagnosis: left wrist carpal tunnel syndrome,ulnar nerve synd Patient Data Age: 72 Gender: F Height: 1.56 m Weight: 68.05 kg Allergies Allergy/AdvReac Type Severity Reaction Status Date / Time No Known Allergies Allergy Verified 08/21/23 14:54 Home Medications Medication Instructions Recorded Confirmed Type cholecalciferol (vitamin D3) 125 125 mcg PO DAILY 11/23/20 08/21/23 History mcg (5,000 unit) capsule lancets 30 gauge #200 ea 04/28/21 05/23/23 Rx turmeric 100 mg-dylon 150 1 cap PO DAILY 01/13/22 08/21/23 History mg-olive 50 mg-oreg 150 mg-capryl capsule icosapent ethyl 1 gram capsule 2 g PO BID #360 caps 10/10/22 08/21/23 Rx (Vascepa) meclizine 25 mg tablet 25 mg PO TID PRN dizziness #30 tabs 10/11/22 08/21/23 Rx atorvastatin 80 mg tablet 80 mg PO DAILY #90 tabs 10/13/22 08/21/23 Rx omeprazole 40 mg capsule,delayed 40 mg PO DAILY #90 caps 10/13/22 08/21/23 Rx release metformin 1,000 mg tablet 1,000 mg PO BID #90 tabs 11/23/22 08/21/23 Rx duloxetine 60 mg capsule,delayed See Rx Instructions .Route 03/07/23 08/21/23 Rx release .COMPLEX #90 caps semaglutide 2 mg/dose (8 mg/3 mL) 2 mg (0.75 mL) subcut WEEKLY 90 05/16/23 08/21/23 Rx subcutaneous pen injector days #9 mL flash glucose sensor (FreeStyle #6 ea 05/19/23 05/23/23 Rx Ty 2 Sensor kit) levothyroxine 125 mcg tablet 125 mcg PO DAILY #90 tabs 07/17/23 08/21/23 Rx dapagliflozin propanediol 10 mg See Rx Instructions .Route 07/24/23 08/21/23 Rx tablet (Farxiga) .COMPLEX #90 tabs naproxen sodium 220 mg capsule 220 mg PO Q12H PRN Pain 08/21/23 08/21/23 History (Aleve) zinc 50 mg tablet 50 mg PO DAILY 08/21/23 08/21/23 History gabapentin 100 mg capsule 200 mg PO BID #120 caps 08/22/23 Rx losartan 50 mg-hydrochlorothiazide 1 tablet PO DAILY #90 tabs 08/24/23 Rx 12.5 mg tablet tramadol 50 mg tablet 50 mg PO Q6H PRN pain #12 tabs 08/30/23 Rx Patient hx anesthesia problems: none Family hx anesthesia problems: none Results Review: All pre-operative results and documents have been reviewed as part of the pre-operative evaluation. 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 DM w/o complication type II Dysphagia, unspecified GERD (gastroesophageal reflux disease) Hepatitis C antibody test positive Hyperlipidemia LDL goal <100 Low vitamin D level Lump on neck Neuropathy Obesity (BMI 30.0-34.9) Obstructive sleep apnea Osteopenia Other and unspecified hyperlipidemia Type 2 diabetes mellitus with hyperglycemia Surgical History Surgical History H/O colonoscopy History of total knee arthroplasty Family History Family History Mother Family history of seizure disorder Other Cancer Heart disease Hypertension Seizure Social History Social History Smoking status: Never smoker Second hand tobacco smoke exposure: No Alcohol intake: never Alcohol use details: rarely Substance use: never Substance use type: does not use Do You Feel Safe in your Home?: Yes Lack of Transportation: No Lack of Food: Never True Current Housing: I Have Housing Concerned About Future Housing: No Difficulty Paying Gas/Electric Bills: No Difficulty Paying for Meds: No Currently Unemployed: No Education: Trade/Vocational Certificate Difficulty w/ Childcare or Family Care: No Living arrangements: with family S
[2023-08-30 08:07] VITALS: BP 124/63; PULSE 73; RESP 20; TEMP 36.7; O2SAT 96
[2023-08-30] MEDS: LACTATED RINGERS 1,000 ML 30 ML IV CONT (08:10)
[2023-08-30 08:20] LABS: Glucose Point of Care 129 mg/dl (65-105)
[2023-08-30] MEDS: ceFAZolin 2 GM/D5W 50 ML 2 GM/50 ML BAG IVPB (09:26)
[2023-08-30] MEDS: LIDO 1%/EPINEPHRINE 1:100,000 50 ML VIAL INFILTRATE (09:39)
[2023-08-30 09:56] VITALS: BP 111/50; PULSE 86; RESP 16; O2SAT 100
[2023-08-30 10:06] LABS: Glucose Point of Care 97 mg/dl (65-105)
[2023-08-30 10:30] VITALS: BP 127/56; PULSE 87; RESP 16; O2SAT 100
[2023-08-30 10:56] VITALS: BP 125/94; PULSE 81; RESP 16; O2SAT 100
== END 2023-08-30 11:15 | disposition home or self-care (01) ==
PROVIDERS: PCP Nurse Practitioner; Visit Provider Plastic Surgery
PROC: 01N54ZZ Release Median Nerve, Percutaneous Endoscopic Approach (ICD-10-PCS; CPT 29848; principal; 2023-08-30 09:15)
DX: G56.02 Carpal tunnel syndrome, left upper limb (principal); G56.22 Lesion of ulnar nerve, left upper limb; E03.9 Hypothyroidism, unspecified; I10 Essential (primary) hypertension; K21.9 Gastro-esophageal reflux disease without esophagitis; E78.5 Hyperlipidemia, unspecified; G47.33 Obstructive sleep apnea (adult) (pediatric); E11.9 Type 2 diabetes mellitus without complications
CPT/HCPCS: 29848; 64718; 36415; 80048; 82948; J0690; J1100; J2405; J2704; J3010; J7120

== ENCOUNTER 2024-02-23 12:30 | Outpatient (RCR) | payer OTHER, SELFPAY ==
--- NOTE | 2023-12-18 08:56 | OTOPEVAL1 ---
Assessment and note entered by JENSEN Mercedes/Geoff, CHT Evaluation Information 12/18/23 Assessment Status Evaluation Diagnosis Left de Quervain's, Right trigger thumb Subjective Information Patient has been wearing a left forearm based thumb spica immobilizer for about 4 weeks. She reports this has helped some. She reports a constant 5/10 pain in the left wrist and if it's been a busy day, it can get up to 9/10. 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 On the right thumb she reports pain and triggering with any sort of gripping or pinching. She reports she cannot lift her coffee cup ( cylindrical grasp) due to pain. Reported Pain Level Pain Score 5,4: Self Report Assessment OT Clinical Summary Patient referred to OT with dx of left de Quervain 's and right trigger thumb. She presents with pain , stiffness, and reduced functional use of bilateral hands. Skilled OT indicated to for use of modalities, manual therapy, splinting, therapeutic exercise, and HEP instruction to facilitate reduced pain, improved functional strength, and return to functional unrestricted use of bilateral hands. Plan of Care Interventions Therapeutic Exercise,Manual Therapy,Therapeutic Activities,Hot Pack/Cold Pack,Ultrasound,Paraffin OT Services Indicated Yes Treatment Frequency and 1-2x/week for 8 visits Duration These treatments will address the objective and functional deficits as defined above. The patient will be advanced safely and appropriately in order for the patient to progress towards his/her prior level of function. Additional exercises will be introduced and as well as a comprehensive home exercise program upon discharge, if needed, ?to ensure carryover of functional gains achieved in the clinic. This treatment plan has been reviewed and agreement upon by the patient.
--- NOTE | 2023-12-18 08:57 | OPREHPOC ---
Outpatient Therapy Plan of Care This is a Multidisciplinary Plan of Care that may contain components documented by all disciplines (PT, OT, and ST.) OT Problem 1 OT Problem #1 Knowledge Deficit OT Goal 1 Goal 1. Patient to be independent with instructed materials. Target Visit 8 OT Problem 2 OT Problem #2 Pain OT Goal 1 Goal 1. Patient to report reduced left wrist pain to 5/ 10 at worst . 2. Patient to report reduced right thumb pain to 2 /10 at worst . Target Visit 8 OT Problem 3 OT Problem #3 Impaired Flexibility OT Goal 1 Goal 1. Patient to improve functional flexibility of bilateral thumbs as measured by being able to complete serial opposition with slide to base of V without pain or triggering. Target Visit 8 OT Problem 4 OT Problem #4 Impaired Strength OT Goal 1 Goal 1. Patient to be able to complete gentle dance choreographer/ pinch strengthening with bilateral hands with at least yellow theraputty x5 minutes without pain or thumb triggering.
--- NOTE | 2023-12-27 15:27 | PCOTNOTE ---
Patient did not show up for scheduled appointment this date. 12-26
--- NOTE | 2024-01-18 11:40 | OTOPPROG ---
Assessment and note entered by Luke Ho, JENSEN/Geoff, CHT OT Progress Update 01/18/24 Assessment Status Progress Diagnosis Left de Quervain's, Right trigger thumb Subjective Information Patient reports continued pain, but reporting less pain numbers than the initial evaluation. She reports she is been able to do some light gripping and pinching with the right thumb without triggering. She continues to have triggering with forceful gripping or pinching. She continues to report left wrist pain, but that she has progressed to being able to at least lift a coffee cup without such severe pain. Working on her computer tends to increase her pain, but she takes breaks and wears her wrist immobilizer and thumb splint to allow these structures to rest. Left wrist ROM returned to normal limits. She continues to have 3-4/10 pain with wrist ROM. Right supervisor taping strength measuring 50 lbs. (Norm 50 lbs.) She continues to wear a forearm based thumb spica on the left. HEP includes active ROM and icing. Right thumb ROM is WNL. She has catching/ triggering with composite thumb flexion. Left supervisor taping strength measuring 45 lbs. (Norm 48 lbs.) She has a thumb IP immobilizer that she has been wearing. HEP includes passive ROM and icing. Assessment OT Clinical Summary Patient referred to OT with dx of left de Quervain 's and right trigger thumb. She is making progress with reduced pain and improved flexibility. She continues to have triggering, pain, and weakness that limits return to functional use, however. Continued skilled OT indicated to for use of modalities, manual therapy, splinting, therapeutic exercise, and HEP instruction to facilitate reduced pain, improved functional strength, and return to functional unrestricted use of bilateral hands. Plan of Care Interventions Therapeutic Exercise,Manual Therapy,Therapeutic Activities,Hot Pack/Cold Pack,Ultrasound,Paraffin OT Services Indicated Yes Treatment Frequency and 2x/week for 8 visits Duration These treatments will address the objective and functional deficits as defined above. The patient will be advanced safely and appropriately in order for the patient to progress towards his/her prior level of function. Additional exercises will be introdu
--- NOTE | 2024-01-18 11:41 | OPREHPOC ---
Outpatient Therapy Plan of Care This is a Multidisciplinary Plan of Care that may contain components documented by all disciplines (PT, OT, and ST.) OT Problem 1 OT Problem #1 Knowledge Deficit OT Goal 1 Goal 1. Patient to be independent with instructed materials. ---OT POC UPDATE 01/18/24--- 1. Met, continue as HEP is progressed Target Visit 14 OT Problem 2 OT Problem #2 Pain OT Goal 1 Goal 1. Patient to report reduced left wrist pain to 5/ 10 at worst . 2. Patient to report reduced right thumb pain to 2 /10 at worst . ---OT POC UPDATE 01/18/24--- 1. Progressing, but not met, continue to treat pain 2. Progressing, but not met, continue to treat pain Target Visit 14 OT Problem 3 OT Problem #3 Impaired Flexibility OT Goal 1 Goal 1. Patient to improve functional flexibility of bilateral thumbs as measured by being able to complete serial opposition with slide to base of V without pain or triggering. ---OT POC UPDATE 01/18/24--- 1. Not met, continue Target Visit 14 OT Problem 4 OT Problem #4 Impaired Strength OT Goal 1 Goal 1. Patient to be able to complete gentle mechanical operator/ pinch strengthening with bilateral hands with at least yellow theraputty x5 minutes without pain or thumb triggering. ---OT POC UPDATE 01/18/24--- 1. Not met, continue New goal: 2. Patient to be able to progress to left wrist strengthening with 1 lb. free weight in all planes without pain. Target Visit 14
--- NOTE | 2024-02-23 13:28 | OTOPPROG ---
Assessment and note entered by Luke Ho, JENSEN/Geoff, CHT Progress Update 02/23/24 Diagnosis Left de Quervain's, Right trigger thumb Subjective Information Patient reporting no pain today. No pain in the left wrist for over a week. Intermittent 1/10 pain in the left thumb, particularly if she's pressing the button on her dog's leash, otherwise she has been feeling great. She reports she continues to incorporate rest breaks when working at her computer. Left side: wrist ROM returned to normal limits strength is 4+/5 and no pain with MMT Left recordings librarian strength measuring 49 lbs. (Norm 48 lbs.) Right side: Right thumb ROM is WNL. With active IP flexion, there continues to be slight catching. Right recordings librarian strength measuring 50 lbs. (Norm 50 lbs.) Assessment OT Clinical Summary Patient referred to OT with dx of left de Quervain 's and right trigger thumb. Patient is no longer experiencing pain or functional limitations on the left, working on strengthening HEP, and doing very well. Right thumb is progressing, however, she continues to experience intermittent triggering. She has made excellent progress with reduced pain and improved flexibility on this side . Plan - wrap up care today on the left wrist/ thumb. Continue treatment on right trigger thumb. Continued skilled OT indicated to for use of modalities, manual therapy, therapeutic exercise, and HEP instruction to facilitate reduced pain, improved functional strength, and return to functional unrestricted use of bilateral hands. Plan of Care Interventions Therapeutic Exercise,Manual Therapy,Therapeutic Activities,Hot Pack/Cold Pack,Ultrasound,Paraffin OT Services Indicated Yes Treatment Frequency and 2x/week for 6 visits Duration These treatments will address the objective and functional deficits as defined above. The patient will be advanced safely and appropriately in order for the patient to progress towards his/her prior level of function. Additional exercises will be introduced and as well as a comprehensive home exercise program upon discharge, if needed, ?to ensure carryover of functional gains achieved in the clinic. This treatment plan has been reviewed and agreement upon by the patient.
--- NOTE | 2024-02-23 13:29 | OPREHPOC ---
Outpatient Therapy Plan of Care This is a Multidisciplinary Plan of Care that may contain components documented by all disciplines (PT, OT, and ST.) OT Problem 1 OT Problem #1 Knowledge Deficit OT Goal 1 Goal / Goal Update 1. Patient to be independent with instructed materials. ---OT POC UPDATE 01/18/24--- 1. Met, continue as HEP is progressed ---OT POC UPDATE 02/23/24--- 1. Met, continue Target Visit 20 OT Problem 2 OT Problem #2 Pain OT Goal 1 Goal / Goal Update 1. Patient to report reduced left wrist pain to 5/ 10 at worst . 2. Patient to report reduced right thumb pain to 2 /10 at worst . ---OT POC UPDATE 01/18/24--- 1. Progressing, but not met, continue to treat pain 2. Progressing, but not met, continue to treat pain ---OT POC UPDATE 02/23/24--- 1. Met 2. Met Target Visit 20 OT Problem 3 OT Problem #3 Impaired Flexibility OT Goal 1 Goal / Goal Update 1. Patient to improve functional flexibility of bilateral thumbs as measured by being able to complete serial opposition with slide to base of V without pain or triggering. ---OT POC UPDATE 01/18/24--- 1. Not met, continue ---OT POC UPDATE 02/23/24--- 1. Met on the left, not met on the right, continue treatment on right thumb Target Visit 20 OT Problem 4 OT Problem #4 Impaired Strength OT Goal 1 Goal / Goal Update 1. Patient to be able to complete gentle drawer waxer/ pinch strengthening with bilateral hands with at least yellow theraputty x5 minutes without pain or thumb triggering. ---OT POC UPDATE 01/18/24--- 1. Not met, continue New goal: 2. Patient to be able to progress to left wrist strengthening with 1 lb. free weight in all planes without pain. ---OT POC UPDATE 02/23/24---
== END 2024-03-17 23:59 | disposition home or self-care (01) ==
LOC: ANHOT 12:30
PROVIDERS: PCP Nurse Practitioner; Visit Provider Physician Assistant Surgical
DX: M65.4 Radial styloid tenosynovitis [de Quervain] (principal); M65.311 Trigger thumb, right thumb
CPT/HCPCS: 97018; 97035; 97110; 97140; 97165; L3933

== ENCOUNTER 2024-10-15 10:02 | Outpatient (CLI) | payer OTHER, SELFPAY ==
--- NOTE | ~2024-10-15 | MM_ITS ---
EXAMINATION: MM screening [facility] BI w kari HISTORY: Screening TECHNIQUE: Craniocaudal and mediolateral oblique 3-D tomosynthesis images were obtained and synthetic 2-D images were generated. CAD analysis was submitted and interpreted. COMPARISON: Comparison to multiple prior studies sequentially, with oldest reviewed study dated 08/20. BREAST PARENCHYMAL COMPOSITION: Not dense: There are scattered areas of fibroglandular density. FINDINGS: Stable benign-appearing low-density bilateral subareolar/periareolar masses. There is no ev idence of suspicious mass, calcification, or architectural distortion to suggest malignancy in either breast. There has been no suspicious interval change. IMPRESSION: 1. No mammographic evidence of malignancy. 2. Recommend routine screening mammography in one year. BI-RADS Category 2: Benign finding(s). Reviewed, dictated and finalized at location B.
--- OUTSIDE RECORDS SUMMARY | 2024-10-15 10:54 | XMS_ITS | Clinical Summary ---
Author Organization [facility] Address [address] [place] [id number] Care Team Providers Care Medical File Clerk Name Role Phone Unavailable Primary Care Provider Unavailabl e Social History Tobacco Use Types Packs/Day Years Used Date Smoking Tobacco: Never Assessed Comments Unknown Sex and Gender Information Value Date Recorded Sex Assigned at Not on file Legal Sex Female 6:01 PM CDT Gender Identity Not on file Sexual Orientation Not on file Plan of Treatment Health Maintenance Due Date Last Done Comments Colorectal Cancer Screening Colonoscopy (10 Years) 1948 Hepatitis C 1966 DTaP, Tdap and Td Vaccines ( 1 - Tdap) 11/07/1967 Zoster Vaccines (1 of 2) 1998 Dexa Scan (General) 2013 Pneumococcal Vaccine: 50+ Ye ars (1 of 1 - PCV) 2013 RSV Immunization or 60+ Years (1 - 1-dose 75+ series) 11/07/2023 COVID-19 Vaccine ( - 2023-2 5 season) 2024 Meningococcal B Vaccine Aged Out No l onger eligible based on patient's age to complete this topic Meningococcal Vaccine Aged Out No praneeth juan pablo eligible based on patient's age to complete this topic RSV Immunizations Under 20 Months Aged Out No longer eligible based on patient's age to complete this topic
--- OUTSIDE RECORDS SUMMARY | 2024-10-15 10:54 | XMS_ITS | Clinical Summary ---
Author Organization [facility] Address [address] [place] [address] Phone Care Team Providers Care Pairer Inspector Name Role Phone Poncho Grider Primary Care Provider [phone] Allergies No known active allergies Medications atorvastatin (LIPITOR) 40 MG Tablet daily. 03/19/2018 Active levothyroxine (SYNTHROID) 125 MCG Tablet daily. 03/22/2018 Active omeprazole (PRILOSEC) 40 MG CAPSULE DELAYED RELEASE daily. 01/08/2018 Active glimepiride (AMARYL) 2 MG Tablet Take 2 mg by mouth every morning. Active lisinopril-hydro CHLOROthiazide (PRINZIDE, ZESTORETIC) 20-12.5 MG Tablet Take 1 Tab by mouth daily. Active metFORMIN (GLUCOPHAGE) 1000 MG Tablet Take 1,000 mg by mouth 2 times daily (with meals). Active Active Problems Problem Noted Date Diagnosed Date Hepatitis C antibody test positive Family History Medical History Relation Name Comments Cancer Brother 1 esophagus Diabetes Brother 1 Other-comment Brother 1 Guillian barre Diabetes Brother 2 Diabetes Father Heart Attack Father Heart Disease Father Diabetes Mother Diabetes Sister Relation Name Status Comments Brother 1 Brother 2 Father Mother Sister Social History Tobacco Use Types Packs/Day Years Used Date Smoking Tobacco: Never Smokeless Tobacco: Never Alcohol Use Standard Drinks/Week Comments Yes 0 (1 standard drink = 0.6 oz pur e alcohol) socially Sexually Active Control Partners Comments Never Comments No Sex and Gender Information Value Date Recorded Sex Assigned at Not on file Legal Sex Female 11:05 AM CDT Gender Identity Not on file Sexual Orientation Not on file Last Filed Vital Signs Vital Sign Reading Time Taken Comments Blood Pressure 126/80 03/23/2018 10:00 AM CDT Pulse 77 03/23/2018 10:00 AM CDT Temperature 36.3 C (97.4 F) 03/23/2018 10:00 AM CDT Respiratory Rate 17 03/23/2018 10:00 AM CDT Oxygen Saturation 92% 03/23/2018 10:00 AM CDT Inhaled Oxygen Concentration - - Weight 86.2 kg (190 lb) 06/03/2019 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 MACHINE SLAT BASKET MAKER Height 156.2 cm (5' 1.5 ) 06/03/2019 1:00 PM MACHINE SLAT BASKET MAKER Body Mass Index 35.32 06/03/2019 1:00 PM MACHINE SLAT BASKET MAKER Plan of Treatment Health Maintenance Due Date Last Done Comments TdaP Immunization 1950 Colonoscopy 1993 Colorectal Cancer Screening 1993 Cologuard 1998 Immunochemical Fecal Occult Blood 1998 Zoster Immunization (1 of 2) 1998 Pneumococcal Immunization (50+ years) (2 of 2 - PPSV23) 04/29/2016 04/29/2015 Respiratory Syncytial Virus (RSV) Immunization (Adult) (1 - 1-dose 75+ series) 11/07/2023 Influenza Immunization (#1) 03/03/202404/03, 04/04/2016, 04/21/2015, Additional history exists SARS-COV-2 Immunization ( season) 2024 03/06/2021, 09/04/2020, 08/11/2020 Pneumococcal Immunization Combined Discontinued 04/29/2015 Hepatitis C Virus (HCV) Screening Completed 03/23/2018 Hepatitis B Immunization Aged Out No longer eligible based on patient's age to complete this topic Meningococcal Immunization (ACWY) Aged Out No longer eligible based on patient's age to complete this topic Rotavirus Immunization Aged Out No lo nger eligible based on patient's age to complete this topic Procedures Procedure Name Priority Date/Time Associated Diagnosis Comments HEPATITIS C RNA QUANT PCR VIRAL LOAD Routine 03/23/2018 11:07 AM CDT Hepatitis C antibody positive in blood from Last 3 Months or Most Recently Relevant to Health Maintenance Results * HEPATITIS C RNA QUANT PCR VIRAL LOAD (03/23/2018 11:07 AM CDT) HCV RNA QUANT PCR NON DETECTED NON DETECTED 03/27/2018 2:11 PM CDT [facility] HCV RNA QT LOG10 <=0.00 Log10 IU/mL 03/27/2018 2:11 PM CDT [facility] Comment: LOG 10 is not applicable. Sample held in Serology for 1 month. Call Laboratory if further testing is desired. This test was performed using LEANNE AmpliPrep LEANNE Taq Man Real Time PCR. Blood specimen (specimen) Venipuncture / Unknown 03/23/2018 11:07 AM CDT 03/23/2018 1:18 PM CDT us Amador Doyle MD IMMUNOLOGY ORDERABLES F inal Result [facility] [address] [place] [address], from Last 3 Months or Most Recently Relevant to Health Maintenance Care Teams Pairer Inspector Relationship Specialty Start Date End Date Poncho Grider DO [address] [facility] [address] [place] [address] PCP - General Internal Medicine 05/16/19
--- OUTSIDE RECORDS SUMMARY | 2024-10-15 10:54 | XMS_ITS | Clinical Summary ---
Author Organization [facility] Address [address] [place] [address] Phone Care Team Providers Care Hollow Handle Knife Assembler Name Role Phone Poncho Grider Primary Care Provider [phone] Allergies No known active allergies Medications omeprazole (PriLOSEC) 40 mg Capsule, Delayed Release(E.C.) Take 40 mg by mouth daily. Active glimepiride (AMARYL) 2 mg tablet Take 2 mg by mouth daily with breakfast. Active levothyroxine 125 mcg tablet Take 125 mcg by mouth daily sexual assault counselor. Active atorvastatin (LIPITOR) 40 mg tablet Take 40 mg by mouth daily. Active canagliflozin (Invokana) 100 mg Take 100 mg by mouth daily before breakfast. Active linaGLIPtin (Tradjenta) 5 mg Tablet Take 5 mg by mouth daily. Active metFORMIN (GLUCOPHAGE) 1,000 mg tablet Take 1,000 mg by mouth 2 times daily with meals. Active TURMERIC ORAL Take 500 mg by mouth daily. Active cholecalciferol , vitamin D3, (VITAMIN D3 ORAL) Take 5,000 Units by mouth daily. Active HYDROcodone-neri taminophen (NORCO) 5-325 mg tabletIndicatio ns:Encounter for blood typing Take 1-2 Tablets by mouth every 4 hours as needed for break through pain. Max Daily Amount: 9 Tablets per insurance restriction. 63 Tablet 03/05/2020 5:20 PM CDT 0 Active sennosides-docu sate sodium (SENNA-S) 8.6-50 mg tablet Take 1 Tablet by mouth 2 times daily. 60 Tablet 03/05/2020 5:20 PM CDT 0 Active Social History Tobacco Use Types Packs/Day Years Used Date Smoking Tobacco: Former Cigarettes Smokeless Tobacco: Never Comments:was a social smoker quit over 20 yrs ago Alcohol Use Standard Drinks/Week Comments Yes 0 (1 standard drink = 0.6 oz pur e alcohol) Comments No Sex and Gender Information Value Date Recorded Sex Assigned at Not on file Legal Sex Female 10:54 AM CDT Gender Identity Not on file Sexual Orientation Not on file Last Filed Vital Signs Vital Sign Reading Time Taken Comments Blood Pressure 136/69 03/05/2020 6:41 PM CDT Pulse 73 03/05/2020 6:41 PM CDT Temperature 36.6 C (97.9 F) 03/05/2020 6:41 PM CDT Respiratory Rate 16 03/05/2020 6:41 PM CDT Oxygen Saturation 99% 03/05/2020 6:41 PM CDT Inhaled Oxygen Concentration - - Weight 82.6 kg (182 lb) 03/04/2020 5:56 AM CDT Height 154.9 cm (5' 1 ) 02/26/2020 11:15 AM CDT Body Mass Index 34.39 02/26/2020 11:15 AM CDT Plan of Treatment Health Maintenance Due Date Last Done Comments DTAP/TDAP/TD VACCINES (1 - Tdap) 11/07/1967 COLORECTAL SCREENING 1993 Colorectal Cancer Screening 1993 FIT-DNA Q 3 years 1993 FIT/FOBT Q 1 year 1993 Flex Sig/CT Colonography Q 5 years 1993 PNEUMOCOCCAL VACCINE 50+ YEARS (1 of 1 - PCV) 11/06/18 99 ZOSTER VACCINE (1 of 2) 1998 OSTEOPOROSIS SCREENING 2013 RSV VACCINE (60+ or ) (1 - 1-dose 75+ series) 11/07/2023 INFLUENZA VACCINE (#1) 2024 Medical Devices Implanted Type Area Grading Supervisor Device Identifier Shelf Expiration Date Model / Serial / Lot Cement Bone Biomet R 1x40 [id number] - [id number] Implanted:Qty : 1 on 03/04/2020 by Smith Wooten MD at [facility] Left: Knee [employer] 08/07/2019 [id number] / / [id number] Comp Fem Persona Cr Sz7 Lt [id number] 1 - [id number] Implanted:Qty : 1 on 03/04/2020 by Smith Wooten MD at [facility] Knee Left: Knee [employer] 10/30/2029 [id number] / / [id number] Description:CAP VARGAS Comp Tib Persona 5d Szd Lt [id number] 1 - [id number] Implanted:Qty : 1 on 03/04/2020 by Smith Wooten MD at [facility] Knee Left: Knee [employer] 09/30/2029 [id number] / / [id number] Description:CAP VARGAS Patella Persona Poly 32mm [id number] 2 - [id number] Implanted:Qty : 1 on 03/04/2020 by Smith Wooten MD at [facility] Knee Left: Knee [employer] 10/01/2027 [id number] / / [id number] Description:CAP VARGAS Insert Tib Persona Cr 3-9cd [id number] 2 - [id number] Implanted:Qty : 1 on 03/04/2020 by Smith Wooten MD at [facility] Knee Left: Knee [employer] 01/30/2027 [id number] / / [id number] Description:CAP VARGAS Insurance MEDICARE PART A HOSPITAL ONLY [employer] [id number] RX [employer] RX Member Subscriber Plan / Payer (Ef fective for All Dates) Name:Seda Ellis Relation to Subscriber:Self Name:Seda Ellis Payer ID:Not on file Group ID:[id number] Type:RX Commercial Address: [address] Advance Directives For more information, please contact: [phone] * Full Code (Latest Code Status on File) Date Activated Date Inactivated Comments 03/04/2020 7:46 AM 03/05/2020 8:53 PM Care Teams Hollow Handle Knife Assembler Relationship Specialty Start Date End Date Poncho Grider DO [address] [facility] [address] [place] [address] PCP - General Internal Medicine 02/14/20
== END 2024-10-15 10:03 | disposition home or self-care (01) ==
PROVIDERS: PCP Nurse Practitioner; Visit Provider Nurse Practitioner
DX: Z12.31 Encounter for screening mammogram for malignant neoplasm of breast (principal)
CPT/HCPCS: 77063; 77067